=== PATIENT | male | born 1990 ===

== ENCOUNTER 2018-01-30 12:10 | Emergency (ER) | payer SELFPAY ==
--- NOTE | 2018-01-30 12:20 | NUR.NOTE ---
attempted triage x 1. Pt outside making phone calls. Will attempt again.
--- NOTE | 2018-01-30 12:38 | NUR.NOTE ---
Nursing Note: pt has not yet returned, will await pt's return.
[2018-01-30 12:40] VITALS: BP 130/77; PULSE 99; RESP 16; TEMP 36.5; O2SAT 98
--- NOTE | 2018-01-30 12:54 | W.ED.GENAD ---
Discharge Plan Disposition Patient Disposition: HOME Condition: Good Discharge Details Chief Complaint: GenMedical Clinical Impression: Encounter for medication refill ED Provider: Khari Sandoval Home Meds and New Rx's Prescriptions: New tramadol 50 mg tablet 150 mg PO Q8H 7 Days Qty: 60 RF: 0 atenolol 100 mg tablet 100 mg PO DAILY Qty: 7 RF: 0 No Action atenolol 100 mg Tablet 100 mg PO DAILY RF: 0 tramadol 50 mg Tablet 150 mg PO TID RF: 0 Discharge Instructions Additional Instructions: Follow-up with the [facility] in [place] next week as planned. Continue your medications as per prescriptions that will bridge you until the appointment. Return to the emergency department for any acute concern Medical Decision Making MDM Narrative Medical decision making narrative: 27-year-old male who is recently moved to this area and ran out of his medications, now with pre-standing appointment at [place] at the [facility] for February 05. I will prescribe his atenolol and tramadol on a bridging form for 7 days time. He understands the ER cannot prescribe chronic medications on a long-standing basis. He is stable for discharge to home. HPI - General Adult General Mode of arrival: ambulatory. Date/Time Provider Initiated Documentation: 01/30/18 12:41. Limitations to Documentation: no limitations. Information obtained by: patient. HPI Narrative: Medications: This is a 27-year-old male who recently moved from [place] and is staying in the [facility]. [facility] [place] [facility]. He has not had his medications for 4 days and they include atenolol 100 mg once daily and tramadol 150 mg 3 times a day. No headache, chest pain. He does have persistent knee pain for which he is treated chronically. Related Data Home Medications Medication Instructions Recorded Confirmed atenolol 100 mg PO DAILY 01/30/18 01/30/18 tramadol 150 mg PO TID 01/30/18 01/30/18 Previous Rx's Medication Instructions Recorded atenolol 100 mg PO DAILY #7 tab 01/30/18 tramadol 150 mg PO Q8H 7 Days #60 tab 01/30/18 Allergies Allergy/AdvReac Type Severity Reaction Status Date / Time No Known Allergies Allergy Unverified 01/30/18 12:44 General Stated Complaint: GenMedical MIGUE: 5 Review of Systems Review of Systems 6 systems reviewed and otherwise negative [facility] Social History Smoking/Tobacco Use Status: Current every day Exam Const General: cooperative, healthy appearing and comfortable Orientation: alert [facility] Head: normocephalic and atraumatic Eyes General: appearance normal, both eyes and all related structures Eyelids: eyelids normal Pupils: PERRL EOM: EOM intact bilaterally Chest Chest: normal inspection of the chest Resp Effort & Inspection: normal respiratory effort Auscultation: clear to auscultation bilaterally Cardio Rate: regular rate Rhythm: regular rhythm Heart Sounds: S1 normal and S2 normal Neuro General: alert, awake and oriented x3 Cognition: normal cognition Speech: speech normal Extrem General: normal to inspection, full ROM and normal capillary refill Psych Mood: congruent mood Affect: normal affect Attitude: cooperative Course Vital Signs Temperature 36.5 C 01/30/18 12:40 Pulse 99 H 01/30/18 12:40 Respiratory Rate 16 01/30/18 12:40 Blood Pressure 130/77 01/30/18 12:40 Pulse Oximetry 98 01/30/18 12:40 Temperature 36.5 C 01/30/18 12:40 Pulse 99 H 01/30/18 12:40 Respiratory Rate 16 01/30/18 12:40 Blood Pressure 130/77 01/30/18 12:40 Pulse Oximetry 98 01/30/18 12:40
--- NOTE | 2018-01-30 12:58 | ED.GENADUL_ITS ---
Discharge Plan Disposition Patient Disposition: HOME Condition: Good Discharge Details Chief Complaint: GenMedical Clinical Impression: Encounter for medication refill ED Provider: Khari Sandoval Home Meds and New Rx's Prescriptions: New tramadol 50 mg tablet 150 mg PO Q8H 7 Days Qty: 60 RF: 0 atenolol 100 mg tablet 100 mg PO DAILY Qty: 7 RF: 0 No Action atenolol 100 mg Tablet 100 mg PO DAILY RF: 0 tramadol 50 mg Tablet 150 mg PO TID RF: 0 Discharge Instructions Additional Instructions: Follow-up with the [facility] in [place] next week as planned. Continue your medications as per prescriptions that will bridge you until the appointment. Return to the emergency department for any acute concern Medical Decision Making MDM Narrative Medical decision making narrative: 27-year-old male who is recently moved to this area and ran out of his medications, now with pre-standing appointment at [place] at the [facility] for February 05. I will prescribe his atenolol and tramadol on a bridging form for 7 days time. He understands the ER cannot prescribe chronic medications on a long-standing basis. He is stable for discharge to home. HPI - General Adult General Mode of arrival: ambulatory . Date/Time Provider Initiated Documentation: 01/30/18 12:41 . Limitations to Documentation: no limitations . Information obtained by: patient . HPI Narrative: Medications: This is a 27-year-old male who recently moved from [place] and is staying in the [facility]. [facility] [place] [facility] He has not had his medications for 4 days and they include atenolol 100 mg once daily and tramadol 150 mg 3 times a day. No headache, chest pain. He does have persistent knee pain for which he is treated chronically. Related Data Home Medications Medication Instructions Recorded Confirmed atenolol 100 mg PO DAILY 01/30/18 01/30/18 tramadol 150 mg PO TID 01/30/18 01/30/18 Previous Rx's Medication Instructions Recorded atenolol 100 mg PO DAILY #7 tab 01/30/18 tramadol 150 mg PO Q8H 7 Days #60 tab 01/30/18 Allergies Allergy/AdvReac Type Severity Reaction Status Date / Time No Known Allergies Allergy Unverified 01/30/18 12:44 General Stated Complaint: GenMedical MIGUE: 5 Review of Systems Review of Systems 6 systems reviewed and otherwise negative [facility] Social History Smoking/Tobacco Use Status: Current every day Exam Const General: cooperative, healthy appearing and comfortable Orientation: alert [facility] Head: normocephalic and atraumatic Eyes General: appearance normal, both eyes and all related structures Eyelids: eyelids normal Pupils: PERRL EOM: EOM intact bilaterally Chest Chest: normal inspection of the chest Resp Effort & Inspection: normal respiratory effort Auscultation: clear to auscultation bilaterally Cardio Rate: regular rate Rhythm: regular rhythm Heart Sounds: S1 normal and S2 normal Neuro General: alert, awake and oriented x3 Cognition: normal cognition Speech: speech normal Extrem General: normal to inspection, full ROM and normal capillary refill Psych Mood: congruent mood Affect: normal affect Attitude: cooperative Course Vital Signs Temperature 36.5 C 01/30/18 12:40 Pulse 99 H 01/30/18 12:40 Respiratory Rate 16 01/30/18 12:40 Blood Pressure 130/77 01/30/18 12:40 Pulse Oximetry 98 01/30/18 12:40 Temperature 36.5 C 01/30/18 12:40 Pulse 99 H 01/30/18 12:40 Respiratory Rate 16 01/30/18 12:40 Blood Pressure 130/77 01/30/18 12:40 Pulse Oximetry 98 01/30/18 12:40
[2018-01-30 13:05] VITALS: BP 130/77; PULSE 99; RESP 16; TEMP 36.5; O2SAT 98
== END 2018-01-30 13:06 | disposition home or self-care (01) ==
LOC: ER 14:51
PROVIDERS: Emergency Provider Emergency Medicine
DX: I10 Essential (primary) hypertension (principal); M25.569 Pain in unspecified knee; Z76.0 Encounter for issue of repeat prescription
CPT/HCPCS: 99283; 99282